=== PATIENT | female | born 1995 | race Caucasian/White ===

== ENCOUNTER 2016-11-18 08:07 | Emergency (ER) | payer MEDICAID, OTHER ==
[2016-11-18] MEDS ORDERED: OXYCODONE-ACETAMINOPHEN 5-325 MG TABLET PO ONE (08:54)
[2016-11-18 09:28] LABS: APPEARANCE,URINE SLIGHTLY-CLOUDY; BILIRUBIN,URINE NEGATIVE (NEGATIVE); GLUCOSE, URINE NEGATIVE (NEGATIVE); KETONES,URINE NEGATIVE (NEGATIVE); LEUKOCYTE ESTERASE,URINE SMALL (NEGATIVE); NITRITE,URINE NEGATIVE (NEGATIVE); PROTEIN,URINE NEGATIVE (NEGATIVE); URINE SPECIFIC GRAVITY 1.027; UROBILINOGEN,URINE NEGATIVE mg/dL (<2.0)
--- NOTE | 2016-11-18 09:54 | ER Document Report ---
ED GI/ - General Chief Complaint: Urinary Problem Stated Complaint: FLANK PAIN Time Seen by Provider: 11/18/16 08:42 Mode of Arrival: Ambulatory Information source: Patient Notes: Patient is a 21-year-old female who presents to the ER today for burning with urination and left lower back pain 2 days. Patient admits to fever chills but has not taken her temperature. She states that she has a history of a kidney infection and this feels exactly the same. She also admits to vomiting and diarrhea. She denies any abdominal pain. TRAVEL OUTSIDE OF THE [place] IN LAST 30 DAYS: No - Related Data Allergies/Adverse Reactions: No Known Allergies Allergy (Verified 02/23/15 15:47) Past Medical History - General Information source: Patient - Social History Smoking Status: Never Smoker Chew tobacco use (# tins/day): No Frequency of alcohol use: None Drug Abuse: None Family History: Reviewed & Not Pertinent Renal/ Medical History: Denies: Hx Peritoneal Dialysis Psychiatric Medical History: Reports: Hx Anxiety, Hx Depression Review of Systems - Review of Systems Constitutional: See HPI EENT: No symptoms reported Cardiovascular: No symptoms reported Respiratory: No symptoms reported Gastrointestinal: See HPI Genitourinary: See HPI Female Genitourinary: No symptoms reported Musculoskeletal: No symptoms reported Skin: No symptoms reported Hematologic/Lymphatic: No symptoms reported Neurological/Psychological: No symptoms reported Physical Exam - Vital signs Vitals: Temp Pulse BP Pulse Ox 98.5 F 90 110/71 99 11/18/16 08:31 11/18/16 08:31 11/18/16 08:31 11/18/16 08:31 - Notes Notes: PHYSICAL EXAMINATION: GENERAL: Well-appearing, Eating fast food, and in no acute distress. HEAD: Atraumatic, normocephalic. EYES: Pupils equal round and reactive to light, extraocular movements intact, sclera anicteric, conjunctiva are normal. NECK: Normal range of motion, supple without lymphadenopathy LUNGS: CTAB and equal. No wheezes rales or rhonchi. HEART: Regular rate and rhythm without murmurs ABDOMEN: Soft, no tenderness. No guarding, no rebound BACK: no vertebral tenderness, normal ROM GI/: Mild left CVA tenderness EXTREMITIES: Normal range of motion, no pitting edema. No cyanosis. NEUROLOGICAL: Cranial nerves grossly intact. Normal sensory/motor exams. PSYCH: Normal mood, normal affect. SKIN: Warm, Dry, normal turgor, no rashes or lesions noted Course - Re-evaluation Re-evalutation: 11/18/16 09:52 patient has leukocytes and 13 white blood cells on urinalysis, with patient's symptoms I will treat her for UTI. test is negative today. She is afebrile with normal vital signs here in the emergency department. - Vital Signs Vital signs: Temp Pulse Resp BP Pulse Ox 98.5 F 90 110/71 99 11/18/16 08:31 11/18/16 08:31 11/18/16 08:31 11/18/16 08:31 - Laboratory Laboratory results interpreted by me: 11/18/16 09:11 Ur Leukocyte Esterase SMALL H Urine Ascorbic Acid 40 H Discharge - Discharge Clinical Impression: UTI (urinary tract infection) Qualifiers: Urinary tract infection type: site unspecified Hematuria presence: without hematuria Qualified Code(s): N39.0 - Urinary tract infection, site not specified Condition: Stable Disposition: HOME, SELF-CARE Instructions: Urinary Tract Infection ([facility]) Additional Instructions: Return immediately for any new or worsening symptoms. Follow up with primary care provider, call tomorrow to make followup appointment. Prescriptions: Ciprofloxacin HCl [Cipro 500 mg Tablet] 500 mg PO BID #20 tablet Phenazopyridine HCl [Pyridium 200 mg Tablet] 200 mg PO TID #15 tablet Forms: Return to Work
[2016-11-18 10:22] VITALS: BP 105/61
== END 2016-11-18 10:21 | disposition home or self-care (01) ==
LOC: ER 08:07
DX: N39.0 Urinary tract infection, site not specified (principal); M54.5 Low back pain; R30.0 Dysuria; R68.83 Chills (without fever); R11.10 Vomiting, unspecified; R19.7 Diarrhea, unspecified
CPT/HCPCS: 81001; 81025; 99284

== ENCOUNTER 2016-12-22 12:52 | Emergency (ER) | payer SELFPAY ==
[2016-12-22] MEDS ORDERED: NORMAL SALINE 1000 ML 1,000 ML IV ONE ×2 (14:13→16:24)
--- NOTE | 2016-12-22 14:15 | ER Document Report ---
ED Medical Screen (RME) - General Chief Complaint: Flank Pain Stated Complaint: ABDOMINAL/THROAT PAIN Time Seen by Provider: 12/22/16 14:12 Notes: Patient states she is recently diagnosed with a "kidney infection". She states she took 10 days of antibiotics but still feels nauseated and has vomiting. She still has pain in her flank. She still feels weak. She states she still having blood when she urinates. She also states that she has had bilateral throat pain. TRAVEL OUTSIDE OF THE [place] IN LAST 30 DAYS: No - Related Data Allergies/Adverse Reactions: No Known Allergies Allergy (Verified 12/22/16 12:55) Past Medical History Renal/ Medical History: Denies: Hx Peritoneal Dialysis Psychiatric Medical History: Reports: Hx Anxiety, Hx Depression Physical Exam - Vital signs Vitals: Temp Pulse Resp BP Pulse Ox 98.9 F 115 H 16 133/78 H 99 12/22/16 12:57 12/22/16 12:57 12/22/16 12:57 12/22/16 12:57 12/22/16 12:57 Course - Vital Signs Vital signs: Temp Pulse Resp BP Pulse Ox 98.9 F 115 H 16 133/78 H 99 12/22/16 12:57 12/22/16 12:57 12/22/16 12:57 12/22/16 12:57 12/22/16 12:57
[2016-12-22 14:45] LABS: APPEARANCE,URINE CLOUDY; BILIRUBIN,URINE NEGATIVE (NEGATIVE); GLUCOSE, URINE NEGATIVE (NEGATIVE); KETONES,URINE TRACE mg/dL (NEGATIVE); LEUKOCYTE ESTERASE,URINE LARGE (NEGATIVE); NITRITE,URINE NEGATIVE (NEGATIVE); PROTEIN,URINE NEGATIVE (NEGATIVE); URINE SPECIFIC GRAVITY 1.014
[2016-12-22 14:50] LABS: ABSOLUTE BASOPHILS # (AUTO) 0.1 10^3/uL (0.0-0.2); ABSOLUTE LYMPHOCYTES (AUTO) 1.9 10^3/uL (0.5-4.7); ABSOLUTE MONOCYTES (AUTO) 1.1 10^3/uL (0.1-1.4); ABSOLUTE NEUT (AUTO) 16.8 10^3/uL (1.7-8.2); BASOPHILS % (AUTO) 0.4 % (0-2); EOSINOPHILS % (AUTO) 0.1 % (0-6); HEMOGLOBIN 14.6 g/dL (12.0-15.5); HGB HCT DIFFERENCE 0.8; LYMPHOCYTES % (AUTO) 9.4 % (13-45); MEAN CORPUSCULAR HEMOGLOBIN 30.3 pg (27.0-33.4); MEAN CORPUSCULAR HGB CONC 33.9 g/dL (32.0-36.0); MEAN CORPUSCULAR VOLUME 89 fl (80-97); MONOCYTES % (AUTO) 5.6 % (3-13); RED BLOOD COUNT 4.81 10^6/uL (3.72-5.28); RED CELL DISTRIBUTION WIDTH 13.7 % (11.5-14.0); SEGMENTED NEUTROPHILS % (AUTO) 84.5 % (42-78); WHITE BLOOD COUNT 19.9 10^3/uL (4.0-10.5)
[2016-12-22 15:16] LABS: ALANINE AMINOTRANSFERASE 27 U/L (9-52); ALKALINE PHOSPHATASE 110 U/L (38-126); ANION GAP 19 (5-19); ASPARTATE AMINO TRANSFERASE 19 U/L (14-36); BILIRUBIN,DIRECT 0.5 mg/dL (0.0-0.4); BILIRUBIN,TOTAL 0.6 mg/dL (0.2-1.3); BLOOD UREA NITROGEN 11 mg/dL (7-20); CALCIUM 10.1 mg/dL (8.4-10.2); CARBON DIOXIDE 25 mmol/L (22-30); CHLORIDE 99 mmol/L (98-107); CREATININE RESULT 0.67 mg/dL (0.52-1.25); GLUCOSE 99 mg/dL (75-110); POTASSIUM 3.9 mmol/L (3.6-5.0); SODIUM 143.1 mmol/L (137-145); TOTAL PROTEIN 8.6 g/dL (6.3-8.2)
[2016-12-22] MEDS ORDERED: KETOROLAC TROMETHAMINE INJ/PF 30 MG/1 ML SDV IV ONE (15:48)
[2016-12-22] MEDS ORDERED: CEFTRIAXONE 1 GM/D5W RTU 1 GM/50 ML RTUPB IV ONE (15:49)
--- NOTE | 2016-12-22 16:18 | ER Document Report ---
ED GI/ - General Chief Complaint: Flank Pain Stated Complaint: ABDOMINAL/THROAT PAIN Time Seen by Provider: 12/22/16 14:12 Mode of Arrival: Ambulatory Information source: Patient Notes: 21 yo female c/o sore throat and urinary frequency, urgency, dlysuria for 3 days , fever, vomtiing, sweats, lightheaded and dizzy. No diarrhea. Tx with Cipro x 10 days prescribed 11-18-16 (urine cx not done) Frequent UTI's 3-4 this year. No urology consult. LMP_ Merina IUD-None. No vaginal discharge or dyspareunia. Hx pyelonephritis -2015. TRAVEL OUTSIDE OF THE [place] IN LAST 30 DAYS: No - Related Data Allergies/Adverse Reactions: No Known Allergies Allergy (Verified 12/22/16 12:55) Past Medical History - General Information source: Patient - Social History Smoking Status: Current Every Day Smoker Frequency of alcohol use: None Drug Abuse: None Occupation: unemployed Lives with: Family Family History: Reviewed & Not Pertinent Patient has suicidal ideation: No Patient has homicidal ideation: No - Medical History Notes: Renal/ Medical History: Denies: Hx Peritoneal Dialysis Psychiatric Medical History: Reports: Hx Anxiety, Hx Depression Surgical Hx: Negative Review of Systems - Review of Systems Constitutional: See HPI EENT: See HPI Cardiovascular: No symptoms reported Respiratory: No symptoms reported Gastrointestinal: No symptoms reported Genitourinary: See HPI Female Genitourinary: No symptoms reported Musculoskeletal: No symptoms reported Skin: No symptoms reported Hematologic/Lymphatic: No symptoms reported Neurological/Psychological: No symptoms reported Physical Exam - Vital signs Vitals: Temp Pulse Resp BP Pulse Ox 98.9 F 115 H 16 133/78 H 99 12/22/16 12:57 12/22/16 12:57 12/22/16 12:57 12/22/16 12:57 12/22/16 12:57 Interpretation: Normal - General General appearance: Appears well, Alert - HEENT Head: Normocephalic, Atraumatic Eyes: Normal Pupils: PERRL - Respiratory Respiratory status: No respiratory distress Chest status: Nontender Breath sounds: Normal Chest palpation: Normal - Cardiovascular Rhythm: Regular Heart sounds: Normal auscultation Murmur: No - Abdominal Inspection: Normal Distension: No distension Bowel sounds: Normal Tenderness: Nontender Organomegaly: No organomegaly - Back Back: Normal, Nontender - Extremities General upper extremity: Normal inspection, Nontender, Normal color, Normal ROM , Normal temperature General lower extremity: Normal inspection, Nontender, Normal color, Normal ROM , Normal temperature, Normal weight bearing. No: Amaris's sign - Neurological Neuro grossly intact: Yes Cognition: Normal Orientation: AAOx4 [place] Coma Scale Eye Opening: Spontaneous René Coma Scale Verbal: Oriented [place] Coma Scale Motor: Obeys Commands [place] Coma Scale Total: 15 Speech: Normal Motor strength normal: LUE, RUE, LLE, RLE Sensory: Normal - Psychological Associated symptoms: Normal affect, Normal mood - Skin Skin Temperature: Warm Skin Moisture: Dry Skin Color: Normal Course - Re-evaluation Re-evalutation: 12/22/16 18:25 Patient feels much better she is eating and wants to go home the strep test was positive urine culture is pending cephalexin will treat both pending the urine culture the Rocephin has been given. Whitley was negative. - Vital Signs Vital signs: Temp Pulse Resp BP Pulse Ox 98.9 F 99 16 101/60 98 12/22/16 18:59 12/22/16 18:59 12/22/16 18:59 12/22/16 18:59 12/22/16 18:59 - Laboratory Result Diagrams: 12/22/16 14:35 12/22/16 14:35 Laboratory results interpreted by me: 12/22/16 12/22/16 12/22/16 14:23 14:35 14:35 WBC 19.9 H Seg Neutrophils % 84.5 H Lymphocytes % 9.4 L Absolute Neutrophils 16.8 H Direct Bilirubin 0.5 H Total Protein 8.6 H Urine Ketones TRACE H Urine Blood SMALL H Urine Urobilinogen 2.0 H Ur Leukocyte Esterase LARGE H Discharge - Discharge Clinical Impression: pharyngitis, Strep throat Urinary tract infection Qualifiers: Urinary tract infection type: acute cystitis Hematuria presence: without hematuria Qualified Code(s): N30.00 - Acute cystitis without hematuria Condition: Good Disposition: HOME-SNF (ED ONLY) Instructions: Cephalexin ([facility]), Rocephin ([facility]), Strep Throat ([facility]), Urinary Tract Infection ([facility]) Additional Instructions: plenty of fluifds Prescriptions: Cephalexin Monohydrate [Keflex 500 mg Capsule] 500 mg PO QID #28 capsule Referrals: MICHELLE PARK MD [Primary Care Provider] - Follow up as needed KATHY WEATHERS MD [[facility]] - Follow up as needed
[2016-12-22 19:06] VITALS: BP 101/60
== END 2016-12-22 19:06 ==
LOC: ER 12:52
DX: J02.0 Streptococcal pharyngitis (principal); N30.00 Acute cystitis without hematuria; R10.9 Unspecified abdominal pain; F17.200 Nicotine dependence, unspecified, uncomplicated; R50.9 Fever, unspecified; R11.10 Vomiting, unspecified; R42 Dizziness and giddiness; Z97.5 Presence of (intrauterine) contraceptive device; Z87.440 Personal history of urinary (tract) infections
CPT/HCPCS: 99284; 96361; 96375; 96365; 36415; 87086; 87880; 85025; 81025; 86308; 80053; 81001; J1885; J7030; J0696

== ENCOUNTER 2017-03-25 12:33 | Emergency (ER) | payer SELFPAY ==
[2017-03-25 12:52] VITALS: BP 126/77
[2017-03-25] MEDS ORDERED: METOCLOPRAMIDE HCL INJ/PF 10 MG/2 ML SDV IM ONE (13:51)
--- NOTE | 2017-03-25 13:51 | ER Document Report ---
HPI - HPI Pain Level: 4 Notes: Patient is a 26-year-old female who presents to the ED complaining of nasal congestion/discharge, dry nonproductive cough, fever, body ache, nausea, diarrhea, 1-2 episodes of vomiting 2 days. No melena, hematemesis, hematochezia. Patient states that she is still eating and drinking without difficulties, but does have a decreased p.o. intake. She is still urinating normally having normal bowel movements. Patient has been using some over-the- counter meds for symptoms. She denies any significant past medical history including cardiopulmonary history and immunocompromised conditions. Denies . Patient denies any IV drug use. + smoker. Denies any current headache, neck pain, sore throat, chest pain, palpitations, syncope, shortness of breath, wheeze, dyspnea, abdominal pain, urinary retention, dysuria, hematuria, or rash. - ROS Systems Reviewed and Negative: Yes All other systems reviewed and negative - REPRODUCTIVE LMP: unk Reproductive: DENIES: : Past Medical History - Social History Smoking Status: Current Every Day Smoker Family History: Reviewed & Not Pertinent Renal/ Medical History: Denies: Hx Peritoneal Dialysis Psychiatric Medical History: Reports: Hx Anxiety, Hx Depression Vertical Provider Document - CONSTITUTIONAL Agree With Documented VS: Yes Notes: PHYSICAL EXAMINATION: GENERAL: Well-appearing, well-nourished and in no acute distress. A&Ox4. Answers questions appropriately. Moves comfortably w/o notable distress HEAD: Atraumatic, normocephalic. EYES: Pupils equal round and reactive to light, extraocular movements intact, sclera anicteric, conjunctiva are normal. ENT: EAC clear b/l. TM's intact b/l without erythema, fluid, or perforation. Nares patent and with clear discharge. oropharynx no erythema without exudates. No tonsilar hypertrophy without erythema or exudate. No palatine shift. Uvula midline. No tongue protrusion. No drooling, hoarseness, or airway compromise. Moist mucous membranes. No sinus tenderness. NECK: Normal range of motion, supple without lymphadenopathy. No rigidity/ meningismus. LUNGS: Breath sounds clear to auscultation bilaterally and equal. No wheezes rales or rhonchi. No retractions HEART: Regular rate and rhythm without murmurs, rubs, gallops. ABDOMEN: Soft, nontender, nondistended abdomen. No guarding, no rebound. No masses appreciated. Normal bowel sounds present. No CVA tenderness bilaterally. No hepatosplenomegaly. NEUROLOGICAL: Normal speech, normal gait. Normal sensory, motor exams PSYCH: Normal mood, normal affect. SKIN: Warm, Dry, normal turgor, no rashes or lesions noted. - INFECTION CONTROL TRAVEL OUTSIDE OF THE [place] IN LAST 30 DAYS: No - RESPIRATORY O2 Sat by Pulse Oximetry: 99 Course - Re-evaluation Re-evalutation: 03/25/17 13:49 Patient is an afebrile, well-hydrated, 21-year-old female who presents to the ED with acute URI, suspect influenza. Vitals are stable. PE is otherwise unremarkable. No labs or imaging warranted at this time based on H&P. Patient has no significant cardiopulmonary or immunocompromised medical conditions. Patient's lungs are clear to auscultation bilaterally without tachycardia, hypoxia, or tachypnea. Patient is tolerating p.o. without any difficulties. Thoroughly reviewed the risks, benefits, potential side effects, estimated cost without insurance with patient. After thorough review, patient declined Tamiflu at this time. Low suspicion for any meningitis, sepsis, peritonsillar/ pharyngeal abscess, respiratory compromise, severe dehydration, or other emergent systemic condition at this time. Patient is aware this condition can change from initial presentation and she needs to monitor symptoms closely. Conservative measures otherwise for symptoms. Recheck with your PCM in 3-5 days. Return to the ED with any worsening/concerning symptoms otherwise as reviewed in discharge. Patient is in agreement. Reglan given today. - Vital Signs Vital signs: Temp Pulse Resp BP Pulse Ox 98.5 F 91 18 126/77 H 99 03/25/17 12:50 03/25/17 12:50 03/25/17 12:50 03/25/17 12:50 03/25/17 12:50 Discharge - Discharge Clinical Impression: Influenza Condition: Stable Disposition: HOME, SELF-CARE Instructions: Influenza ([facility]) Additional Instructions: Maintain adequate fluid intake Take meds as directed tylenol/ibuprofen as needed over the counter cold medication as needed for symptoms Humidified air may help Wash your hands regularly Wear a mask when coughing F/u: with your PCM in 3-5 days for a recheck Return to the ED with any fever, worsening pain, chest pain, palpitations, syncope, worsening HUDSON, neck pain/stiffness, shortness of breath, wheezing, drooling, trouble swallowing/breathing, abdominal pain, n/v/d, rash, or worsening/concerning symptoms otherwise. Prescriptions: Ondansetron [Zofran Odt 4 mg Tablet] 1 - 2 tab PO Q4H PRN #15 tab.rapdis PRN Reason: For Nausea/Vomiting Forms: Elevated Blood Pressure Referrals: [facility] [Provider Group] - Follow up as needed [facility] [Provider Group] - Follow up as needed
== END 2017-03-25 14:20 | disposition home or self-care (01) ==
LOC: ER 12:33
DX: J11.1 Influenza due to unidentified influenza virus with other respiratory manifestations (principal); R50.9 Fever, unspecified; M79.1 Myalgia; R19.7 Diarrhea, unspecified; F17.200 Nicotine dependence, unspecified, uncomplicated
CPT/HCPCS: 99283; 96372; J2765

== ENCOUNTER 2017-09-12 15:21 | Emergency (ER) | payer MEDICAID ==
[2017-09-12 15:30] VITALS: BP 116/66
--- NOTE | 2017-09-12 15:40 | ER Document Report ---
ED Medical Screen (RME) - General Chief Complaint: Abdominal Pain Stated Complaint: ABDOMINAL PAIN/VAGINAL BLEEDING Time Seen by Provider: 09/12/17 15:27 Notes: 21-year-old female patient to the emergency department complaining of pelvic pain, vaginal bleeding, questionable rectal bleeding. States that feels like she is having a severe.. She should not be having a. She states because she is on the Mirena control IUD. Has not had an exam done in over a year. No other symptoms at this time. I have greeted and performed a rapid initial assessment of this patient. A comprehensive ED assessment and evaluation of the patient, analysis of test results and completion of the medical decision making process will be conducted by additional ED providers. TRAVEL OUTSIDE OF THE [place] IN LAST 30 DAYS: No - Related Data Allergies/Adverse Reactions: No Known Allergies Allergy (Verified 09/12/17 15:26) Past Medical History - Social History Frequency of alcohol use: None Drug Abuse: Marijuana Renal/ Medical History: Denies: Hx Peritoneal Dialysis Psychiatric Medical History: Reports: Hx Anxiety, Hx Depression Review of Systems - Review of Systems Notes: Review of systems positive for the following: Vaginal bleeding, pelvic pain, rectal bleeding Physical Exam - Vital signs Vitals: Temp Pulse Resp BP Pulse Ox 99.1 F 98 18 116/66 98 09/12/17 15:29 09/12/17 15:29 09/12/17 15:29 09/12/17 15:29 09/12/17 15:29 Interpretation: Normal, Tachycardic - General General appearance: Appears well, Alert - Respiratory Respiratory status: No respiratory distress Chest status: Nontender Breath sounds: Normal Chest palpation: Normal - Cardiovascular Rhythm: Regular Heart sounds: Normal auscultation Murmur: No - Abdominal Inspection: Normal Distension: No distension Bowel sounds: Normal Tenderness: Tender - lower pelvic pain Organomegaly: No organomegaly - Back Back: Normal, Nontender Course - Vital Signs Vital signs: Temp Pulse Resp BP Pulse Ox 99.1 F 98 18 116/66 98 09/12/17 15:29 09/12/17 15:29 09/12/17 15:29 09/12/17 15:29 09/12/17 15:29 Doctor's Discharge - Discharge Referrals: MICHELLE PARK MD [Primary Care Provider] - Follow up as needed
[2017-09-12] MEDS ORDERED: CEFTRIAXONE INJ 250 MG VIAL IM ONE (15:59)
[2017-09-12] MEDS ORDERED: AZITHROMYCIN 250 MG TABLET PO ONE (15:59)
[2017-09-12] MEDS ORDERED: LIDOCAINE 1% INJ-PF (10 MG/ML) 30 ML SDV INJ ONE (15:59)
--- NOTE | 2017-09-12 16:03 | ER Document Report ---
ED General - General Chief Complaint: Abdominal Pain Stated Complaint: ABDOMINAL PAIN/VAGINAL BLEEDING Time Seen by Provider: 09/12/17 15:27 TRAVEL OUTSIDE OF THE [place] IN LAST 30 DAYS: No - HPI Notes: Patient is a 21-year-old female with a history of anxiety, depression, insomnia who presents to the ED complaining of pelvic pain bilaterally and midline 3 days that has been relatively constant. Patient states that the pains do not radiate. Patient has noted vaginal bleeding, odor, and discharge. Patient states that she does have some burning with urination as well. She is otherwise eating and drinking without any difficulties. She is having normal bowel movements. Patient denies being . Patient states that she did have STD testing 2 weeks ago that was negative. Denies any drug allergies. No other concerns or complaints at this time. Denies any headache, fever, URI, sore throat, chest pain, palpitations, syncope, cough, shortness of breath, wheeze, dyspnea, nausea/vomiting/diarrhea, urinary retention, back pain, loss of control of bowel or bladder, numbness/tingling, muscle paralysis/weakness, or rash. - Related Data Allergies/Adverse Reactions: No Known Allergies Allergy (Verified 09/12/17 15:26) Past Medical History - Social History Smoking Status: Never Smoker Frequency of alcohol use: None Drug Abuse: Marijuana Family History: Reviewed & Not Pertinent Patient has suicidal ideation: No Patient has homicidal ideation: No Renal/ Medical History: Denies: Hx Peritoneal Dialysis Psychiatric Medical History: Reports: Hx Anxiety, Hx Depression Review of Systems - Review of Systems -: Yes All other systems reviewed and negative Physical Exam - Vital signs Vitals: Temp Pulse Resp BP Pulse Ox 99.1 F 98 18 116/66 98 09/12/17 15:29 09/12/17 15:29 09/12/17 15:29 09/12/17 15:29 09/12/17 15:29 - Notes Notes: PHYSICAL EXAMINATION: GENERAL: Well-appearing, well-nourished and in no acute distress. HEAD: Atraumatic, normocephalic. EYES: Pupils equal round and reactive to light, extraocular movements intact, conjunctiva are normal. ENT: Nares patent, oropharynx clear without exudates. Moist mucous membranes. EAC's clear bilaterally. No tonsillar hypertrophy or erythema. NECK: Normal range of motion, supple without lymphadenopathy LUNGS: Breath sounds clear to auscultation bilaterally and equal. No wheezes rales or rhonchi. HEART: Regular rate and rhythm without murmurs ABDOMEN: Soft, nondistended abdomen. No guarding, no rebound. Normal bowel sounds present. CVA tenderness negative bilaterally. + tenderness to the sprapubic area. Female : No inguinal adenopathy. External genitalia without erythema, lesions , or masses. Vaginal mucosa pink with bloody discharge. unable to visualize cervix, pt kept pulling away due to discomfort and was unable to open speculum efficiently. Uterus is smooth. No adnexal tenderness. + CMT on exam. Musculoskeletal: FROM to passive/active. Strength 5+/5. Extremities: No cyanosis/clubbing/edema b/l. Peripheral pulses 2+. Capillary refill less than 3 seconds. NEUROLOGICAL: normal speech, normal gait. PSYCH: Normal mood, normal affect. SKIN: Warm, Dry, normal turgor, no rashes or lesions noted. Course - Re-evaluation Re-evalutation: 09/12/17 17:45 Patient is an afebrile, well-hydrated, 25-year-old female who presents to the ED with acute UTI, yeast infection, ruptured rt ovarian cyst, and pelvic pain, suspect PID. Vitals are acceptable without any significant tachycardia, tachypnea, or hypoxia. PE is otherwise unremarkable. CBC and CMP are unremarkable for acute pathology. HCG negative. See urinalysis results. Urine culture is pending. See wet mount results. Chlam/gonorrhea tests are pending. Patient received Zithromax and Rocephin. Patient is nontoxic- appearing is tolerating p.o. without any difficulties. I spoke with the radiologist regarding the transvaginal ultrasound who believes that she may have ruptured a cyst on the right side there is some free fluid. No other acute findings on ultrasound. No other labs or imaging warranted at this time based on H&P. Low suspicion/risk for acute appendicitis, bowel obstruction, acute cholecystitis, acute cholangitis, perforated diverticulitis, incarcerated hernia, pancreatitis, perforated ulcer, peritonitis, sepsis, ectopic , tubo-ovarian abscess, ovarian torsion, or other systemic emergent condition at this time. Patient is aware that her condition can change from initial presentation and she needs to monitor symptoms closely and seek medical attention if any acute changes. I will send her home with prescription for Keflex, doxycycline, Diflucan. Conservative measures otherwise for symptoms. Recheck with your PCM/OBGYN in 3-5 days. Return to the ED with any worsening/ concerning symptoms otherwise as reviewed in discharge. Patient is in agreement. - Vital Signs Vital signs: Temp Pulse Resp BP Pulse Ox 99.1 F 98 18 116/66 98 09/12/17 15:29 09/12/17 15:29 09/12/17 15:29 09/12/17 15:29 09/12/17 15:29 - Laboratory Result Diagrams: 09/12/17 16:22 09/12/17 16:22 Laboratory results interpreted by me: 09/12/17 09/12/17 09/12/17 15:45 16:22 16:22 Hgb 11.8 L Hct 34.7 L BUN 5 L Urine Protein 100 H Urine Blood LARGE H Ur Leukocyte Esterase TRACE H Procedures - Pelvic Exam Pelvic exam Time completed: 16:40 Cultures obtained: Yes Wet prep obtained: Yes Bimanual exam performed: Yes - + tenderness (CMT) Witnessed by: female nurse jeronimo Discharge - Discharge Clinical Impression: Acute UTI (urinary tract infection), PID (pelvic inflammatory disease), Vaginal yeast infection, Ruptured ovarian cyst, Pelvic pain Condition: Stable Disposition: HOME, SELF-CARE Instructions: Cephalexin ([facility]), Doxycycline ([facility]), Ovarian Cyst ([facility]), Pelvic Inflammatory Disease ([facility]), Urinary Tract Infection ([facility]), Vaginal Yeast Infection ([facility]) Additional Instructions: Maintain fluid intake Proper hygenic technique Keep the skin clean Safe sexual practices with condoms everytime Tylenol/ibuprofen as needed Check in with the health department this week for further testing if warranted Your chlamydia/Ghon test are pending and you will be notified if positive results; you may call in 1 day for the results as well Return immediately if symptoms worsen F/u with your PCM/OBGYN in 3-5 days for a recheck Consider consult with Urology Return to the ED with any development of HUDSON/fever, trouble with vision, eye redness, worsening pain, urethral discharge, urinary retention, blood in the urine, flank pain, abdominal pain, n/v, Chest Pain, shortness of breath, joint pains, trouble breathing, or any other worsening/concerning symptoms as needed otherwise. Prescriptions: Cephalexin Monohydrate [Keflex 500 mg Capsule] 500 mg PO BID #14 capsule Doxycycline Hyclate 100 mg PO BID #28 capsule Fluconazole [Diflucan] 150 mg PO ONCE PRN #1 tablet PRN Reason: Forms: Smoking Cessation Education Referrals: MICHELLE PARK MD [Primary Care Provider] - Follow up in 3-5 days
[2017-09-12 16:11] LABS: AMORPHOUS SEDIMENT,URINE 1+ /HPF; APPEARANCE,URINE TURBID; BILIRUBIN,URINE NEGATIVE (NEGATIVE); COLOR,URINE RED; GLUCOSE, URINE NEGATIVE (NEGATIVE); KETONES,URINE NEGATIVE (NEGATIVE); LEUKOCYTE ESTERASE,URINE TRACE (NEGATIVE); NITRITE,URINE NEGATIVE (NEGATIVE); PROTEIN,URINE 100 mg/dL (NEGATIVE); UROBILINOGEN,URINE NEGATIVE mg/dL (<2.0)
[2017-09-12 16:43] LABS: ABSOLUTE BASOPHILS # (AUTO) 0.1 10^3/uL (0.0-0.2); ABSOLUTE EOSINOPHILS # (AUTO) 0.3 10^3/uL (0.0-0.6); ABSOLUTE LYMPHOCYTES (AUTO) 2.6 10^3/uL (0.5-4.7); ABSOLUTE MONOCYTES (AUTO) 0.6 10^3/uL (0.1-1.4); ABSOLUTE NEUT (AUTO) 4.3 10^3/uL (1.7-8.2); BASOPHILS % (AUTO) 0.8 % (0-2); EOSINOPHILS % (AUTO) 4.4 % (0-6); HEMATOCRIT 34.7 % (36.0-47.0); HEMOGLOBIN 11.8 g/dL (12.0-15.5); LYMPHOCYTES % (AUTO) 32.7 % (13-45); MEAN CORPUSCULAR HEMOGLOBIN 29.3 pg (27.0-33.4); MEAN CORPUSCULAR HGB CONC 33.9 g/dL (32.0-36.0); MEAN CORPUSCULAR VOLUME 87 fl (80-97); MONOCYTES % (AUTO) 7.5 % (3-13); PLATELET COUNT 317 10^3/uL (150-450); RED BLOOD COUNT 4.02 10^6/uL (3.72-5.28); RED CELL DISTRIBUTION WIDTH 13.6 % (11.5-14.0); SEGMENTED NEUTROPHILS % (AUTO) 54.6 % (42-78); TOTAL CELLS COUNTED % (AUTO) 100 %; WHITE BLOOD COUNT 7.9 10^3/uL (4.0-10.5)
[2017-09-12 16:56] LABS: ALANINE AMINOTRANSFERASE 24 U/L (9-52); ALBUMIN 3.8 g/dL (3.5-5.0); ALKALINE PHOSPHATASE 71 U/L (38-126); ANION GAP 12 (5-19); ASPARTATE AMINO TRANSFERASE 20 U/L (14-36); BILIRUBIN,DIRECT 0.2 mg/dL (0.0-0.4); BILIRUBIN,TOTAL 0.3 mg/dL (0.2-1.3); BLOOD UREA NITROGEN 5 mg/dL (7-20); CARBON DIOXIDE 27 mmol/L (22-30); CHLORIDE 104 mmol/L (98-107); GLUCOSE 96 mg/dL (75-110); SODIUM 142.9 mmol/L (137-145); TOTAL PROTEIN 6.8 g/dL (6.3-8.2)
[2017-09-12 17:00] LABS: BACTERIA (WET MOUNT) 3+ BACTERIA SEEN; RBCS (WET MOUNT) 2+ RBCS SEEN; T.VAGINALIS (WET MOUNT) NO TRICHOMONAS SEEN; WBCS (WET MOUNT) 2+ WBCS SEEN; YEAST (WET MOUNT) YEAST SEEN
--- NOTE | 2017-09-12 17:22 | RADIOLOGY REPORT (SQ) ---
EXAM DESCRIPTION: U/S NON OB PEL TV W/DOPPLER COMPLETED DATE/TIME: 09/12/2017 5:08 pm REASON FOR STUDY: pelvic pain COMPARISON: None. TECHNIQUE: Dynamic and static grayscale images acquired of the pelvis via transvaginal approach and recorded on PACS. Additional selected color Doppler and spectral images recorded. LIMITATIONS: None. FINDINGS: UTERUS: Uterus is 8 x 4 x 3 cm in size. No fibroids. ENDOMETRIAL STRIPE: IUD in good positioning. Endometrial stripe 3 mm in thickness. CERVIX: Closed, 3.2 cm in length. No nabothian cysts. RIGHT OVARY AND DOPPLER: Normal size. No worrisome masses. Normal arterial vascular flow without evid ence for torsion. Right ovary is 3.6 x 3.4 x 3.3 cm in size with a ruptured follicle, 2 cm in size. LEFT OVARY AND DOPPLER: Normal size. No worrisome masses. Normal arterial vascular flow without evide nce for torsion. Left ovary is 4.3 x 4.3 x 2.5 cm in size. FREE FLUID: Small amount of cul-de-sac, right and left adnexal free fluid. OTHER: Report discussed with Isaac PAHM IMPRESSION: Small amount of cul-de-sac free fluid, nonspecific. Ruptured right follicle. IUD in place. TECHNICAL DOCUMENTATION: JOB ID: [id number] [employer]- All Rights Reserved Rev-06/26 Reading location - IP/workstation name: [email or web address]
[2017-09-12] MEDS ORDERED: ONDANSETRON 4 MG TAB.RAPDIS PO ONE (17:43)
[2017-09-12] MEDS ORDERED: IBUPROFEN 800 MG TABLET PO ONE (17:43)
[2017-09-12 18:32] LABS: CHLAM PCR DETECTED (NOT DETECT); GON PCR NOT DETECTED (NOT DETECT)
== END 2017-09-12 18:19 | disposition home or self-care (01) ==
LOC: ER 15:21
DX: N39.0 Urinary tract infection, site not specified (principal); N73.9 Female pelvic inflammatory disease, unspecified; B37.3 Candidiasis of vulva and vagina; N83.201 Unspecified ovarian cyst, right side; R10.2 Pelvic and perineal pain; N93.9 Abnormal uterine and vaginal bleeding, unspecified
CPT/HCPCS: 99284; 96372; 36415; 87086; 87210; 85025; 81025; 87088; 80053; 81001; 87491; 87591; 76830; 93976; Q0144; J3490 ×2; S0119; J0696